=== PATIENT | female | born 1965 | race Caucasian/White ===

== ENCOUNTER 2016-06-12 12:48 | Emergency (ER) | payer SELFPAY ==
[~2016-06-12] VITALS: Ht 180.3 cm; Wt 104.0 kg
[~2016-06-12 12:48] MED LIST: ANTIVERT25 MG PO; AUGMENTIN875 MG PO; B COMPLEX #11 EACH PO; CIPRO500 MG PO; FIORICET,ESG1 TABLET PO; FLAGYL500 MG PO; HYCODAN SYRUP480 ML PO; HYDROCODON-ACE1 EAC7 PO; MOTRIN600 MG PO; MUCINEX DM ER1 EACH PO; PERCOCET 5/31 TABLET PO; PREDNISONE50 MG PO; PROVENTIL,2.5 MG/3 M IH; ROBITUSSIN AC,T10 ML PO; SKELAXIN800 MG PO; ULTRAM50 MG PO; VENTOLIN HFA18 GM IH; ZITHROMAX Z-PA250 MG PO; amberen
[2016-06-12 13:49] LABS: HEMATOCRIT 43.8 % (36.0-46.0); MCH 30.4 PG (29.0-34.0); MCHC 33.3 G/DL (30.0-36.0); MCV 91.1 FL (83-99); MEAN PLAT.VOLUME 9.9 uM^3 (9.5-12.4); PLATELET COUNT 244 K/uL (156-360); RBC DIS.WIDTH-CV 12.3 % (11.8-14.6); RED BLOOD COUNT 4.81 M/uL (3.80-5.20); WHITE BLOOD COUNT 9.8 K/uL (4.1-10.2)
[2016-06-12 14:01] LABS: CHLORIDE 102 mEq/L (99-109); POTASSIUM 4.4 mEq/L (3.7-5.4); SODIUM 139 mEq/L (136-147)
[2016-06-12 14:03] LABS: GLUCOSE 120 mg/dL (70-99)
[2016-06-12 14:04] LABS: ANION GAP 11 MEQ/L (2-14)
[2016-06-12 14:05] LABS: TOTAL BILIRUBIN 0.6 mg/dL (0.0-1.0)
[2016-06-12 14:06] LABS: ALKALINE PHOSPHATASE 62 IU/L (3-129)
[2016-06-12 14:07] LABS: GFR ESTIMATE (CALCULATED) > 59 mL/min/
[2016-06-12 14:08] LABS: UREA NITROGEN (BUN) 17 mg/dL (9-23)
[2016-06-12 14:17] LABS: QUANTITATIVE HCG < 4.0 MIU/ML
[2016-06-12] MEDS ORDERED: LO-DOSE ASPIRIN81 M2 PO (14:58)
[2016-06-12] MEDS ORDERED: MECLIZINE HCL25 MG PO (14:59)
[2016-06-12 16:09] LABS: BILIRUBIN NEGATIVE; BLOOD NEGATIVE; COLOR YELLOW ((YELLOW)); GLUCOSE (STRIP) NEGATIVE; KETONES NEGATIVE; LEUKOCYTES NEGATIVE; NITRITE NEGATIVE; PROTEIN (STRIP) NEGATIVE; SPECIFIC GRAVITY 1.013 (1.000-1.030); UROBILINOGEN 0.2 MG/DL (0.2-1.0)
[2016-06-12 16:25] LABS: ADD MIUA? NO; UCUL ADDED? NO
[2016-06-12] MEDS ORDERED: CIPRO500 MG PO (16:41)
[2016-06-12] MEDS ORDERED: PERCOCET 5/31 TABLET PO (16:41)
[2016-06-12] MEDS ORDERED: FLAGYL500 MG PO (16:41)
[2016-06-12 17:00] VITALS: BP 143/75
== END 2016-06-12 16:57 | disposition home or self-care (01) ==
LOC: EME 12:48
DX: K57.32 Diverticulitis of large intestine without perforation or abscess without bleeding (principal); R42 Dizziness and giddiness; Z90.710 Acquired absence of both cervix and uterus; Z79.82 Long term (current) use of aspirin
CPT/HCPCS: 74176; 80053; 81003; 84702; 85027; 99281; 99285; J2270; J2405

== ENCOUNTER 2016-06-23 20:06 | Inpatient (IN) | payer OTHER ==
[~2016-06-23] VITALS: Ht 180.3 cm; Wt 116.6 kg
[~2016-06-23 20:06] MED LIST changes: +LO-DOSE ASPIRIN81 M2 PO; +MECLIZINE HCL25 MG PO
[2016-06-23 21:02] LABS: HEMATOCRIT 41.9 % (36.0-46.0); MCH 30.3 PG (29.0-34.0); MCHC 33.2 G/DL (30.0-36.0); MCV 91.5 FL (83-99); MEAN PLAT.VOLUME 9.9 uM^3 (9.5-12.4); PLATELET COUNT 245 K/uL (156-360); RBC DIS.WIDTH-CV 12.3 % (11.8-14.6); RBC DIS.WIDTH-SD 41.3 % (39-53); RED BLOOD COUNT 4.58 M/uL (3.80-5.20); WHITE BLOOD COUNT 7.6 K/uL (4.1-10.2)
[2016-06-23 21:44] LABS: CHLORIDE 100 mEq/L (99-109); POTASSIUM 4.3 mEq/L (3.7-5.4); SODIUM 138 mEq/L (136-147)
[2016-06-23 21:46] LABS: GLUCOSE 129 mg/dL (70-99)
[2016-06-23 21:47] LABS: ANION GAP 11 MEQ/L (2-14)
[2016-06-23 21:48] LABS: TOTAL BILIRUBIN 0.4 mg/dL (0.0-1.0)
[2016-06-23 21:49] LABS: ALKALINE PHOSPHATASE 58 IU/L (3-129)
[2016-06-23 21:50] LABS: GFR ESTIMATE (CALCULATED) > 59 mL/min/
[2016-06-23 21:51] LABS: UREA NITROGEN (BUN) 16 mg/dL (9-23)
[2016-06-23 21:53] LABS: LIPASE 33 U/L (1.0-51.0)
[2016-06-23 22:02] LABS: QUANTITATIVE HCG < 4.0 MIU/ML
[2016-06-24 00:42] LABS: ADD MIUA? YES; BILIRUBIN NEGATIVE; BLOOD NEGATIVE; COLOR YELLOW ((YELLOW)); GLUCOSE (STRIP) NEGATIVE; KETONES NEGATIVE; LEUKOCYTES TRACE; NITRITE NEGATIVE; PROTEIN (STRIP) NEGATIVE; SPECIFIC GRAVITY 1.042 (1.000-1.030); UROBILINOGEN 0.2 MG/DL (0.2-1.0)
[2016-06-24 00:44] LABS: BACTERIA NONE SEEN /HPF; EPITHELIAL CELLS RARE /HPF; MUCUS TRACE /LPF; RED BLOOD CELLS 0-5 /HPF (0-5); UCUL ADDED? NO; WHITE BLOOD CELLS 0-5 /HPF (0-5)
[2016-06-24] MEDS ORDERED: IRBESARTAN75 MG PO (01:20)
[2016-06-24] MEDS ORDERED: BAL B-1001 EACH PO (01:21)
[2016-06-24] MEDS ORDERED: PROBIOTIC1 EAC1 PO (01:22)
[2016-06-24] MEDS ORDERED: CALCIUM-MAG-ZI1 EACH PO (01:22)
[2016-06-24] MEDS ORDERED: METRONIDAZOLE500 MG PO (01:23)
[2016-06-24] MEDS ORDERED: PERCOCET 5/31 TABLET PO (01:24)
[2016-06-24] MEDS ORDERED: CIPRO500 MG PO (01:24)
[2016-06-24] MEDS ORDERED: ZOFRAN4 MG PO (01:24)
[2016-06-24 03:00] VITALS: BP 116/62
[2016-06-24 08:10] VITALS: BP 124/58
[2016-06-24 10:50] VITALS: BP 119/58
[2016-06-24 15:55] VITALS: BP 137/65
[2016-06-24 20:55] VITALS: BP 138/67
[2016-06-24 23:35] VITALS: BP 118/67
[2016-06-25 04:21] VITALS: BP 117/62
[2016-06-25 07:30] VITALS: BP 122/58
[2016-06-25] MEDS ORDERED: NORCO 5/3251 TABLET PO (08:57)
[2016-06-25] MEDS ORDERED: IBUPROFEN600 MG PO (08:57)
[2016-06-25] MEDS ORDERED: ZOFRAN ODT4 MG PO (08:58)
== END 2016-06-25 11:35 | disposition home or self-care (01) | DRG 392 ==
LOC: EME 20:06 → EDOF 06-24 01:17 → 2EASTP 06-24 02:22
DX: K59.00 Constipation, unspecified (principal); K57.90 Diverticulosis of intestine, part unspecified, without perforation or abscess without bleeding; M79.7 Fibromyalgia; E66.9 Obesity, unspecified; Z88.1 Allergy status to other antibiotic agents; Z79.82 Long term (current) use of aspirin; Z68.35 Body mass index [BMI] 35.0-35.9, adult
CPT/HCPCS: 74177; 76705; 80053; 81003; 83690; 84702; 85027; 99281; 99285; J0744; J1885; J2270; J2405; J7030; S0030

== ENCOUNTER 2016-08-05 07:04 | Inpatient (IN) | payer OTHER ==
[~2016-08-05] VITALS: Ht 180.3 cm; Wt 111.0 kg
[~2016-08-05 07:04] MED LIST changes: +BAL B-1001 EACH PO; +CALCIUM-MAG-ZI1 EACH PO; +GLIMEPIRIDE1 MG PO; +IBUPROFEN600 MG PO; +IRBESARTAN75 MG PO; +METRONIDAZOLE500 MG PO; +NORCO 5/3251 TABLET PO; +PROBIOTIC1 EAC1 PO; +ZOFRAN ODT4 MG PO; +ZOFRAN4 MG PO
[2016-08-05 07:33] VITALS: BP 179/84
[2016-08-05 07:53] LABS: POINT-OF-CARE METER ID UU14174212
[2016-08-05 14:22] LABS: POINT-OF-CARE METER ID UU13113675; POINT-OF-CARE USER ID ADMSLT55
[2016-08-05 16:09] VITALS: BP 139/73
[2016-08-05 17:40] VITALS: BP 139/73
[2016-08-05 19:40] VITALS: BP 135/69
[2016-08-05 23:49] VITALS: BP 113/59
[2016-08-06 03:45] VITALS: BP 113/56
[2016-08-06 03:55] VITALS: BP 114/57
[2016-08-06 08:25] VITALS: BP 110/55
[2016-08-06 09:17] LABS: EOSINOPHIL (%) 0 % (0-5); HEMATOCRIT 34.7 % (36.0-46.0); IMMATURE GRANULOCYTE (%) 0.6 % (0.0-0.7); IMMATURE GRANULOCYTE COUNT 0.1 K/uL; INSTRUMENT ABS NEUTROPHIL CT 8.3 K/uL; LYMPHOCYTE COUNT 1.5 K/uL (1.0-2.8); MCH 30.5 PG (29.0-34.0); MCHC 32.9 G/DL (30.0-36.0); MCV 92.8 FL (83-99); MEAN PLAT.VOLUME 9.9 uM^3 (9.5-12.4); MONOCYTE (%) 9.8 % (3-12); MONOCYTE COUNT 1.1 K/uL (0-0.8); NEUTROPHIL (%) 75.9 % (45-76); NEUTROPHIL COUNT 8.3 K/uL (1.8-6.4); PLATELET COUNT 219 K/uL (156-360); RBC DIS.WIDTH-CV 12.2 % (11.8-14.6); RBC DIS.WIDTH-SD 41.6 % (39-53); RED BLOOD COUNT 3.74 M/uL (3.80-5.20); WHITE BLOOD COUNT 10.9 K/uL (4.1-10.2)
[2016-08-06 09:26] LABS: CHLORIDE 104 mEq/L (99-109); POTASSIUM 4.4 mEq/L (3.7-5.4); SODIUM 138 mEq/L (136-147)
[2016-08-06 09:27] LABS: MAGNESIUM 2.2 mg/dL (1.3-2.7)
[2016-08-06 09:29] LABS: GLUCOSE 134 mg/dL (70-99)
[2016-08-06 09:30] LABS: ANION GAP 8 MEQ/L (2-14)
[2016-08-06 09:31] LABS: TOTAL BILIRUBIN 0.6 mg/dL (0.0-1.0)
[2016-08-06 09:32] LABS: ALKALINE PHOSPHATASE 53 IU/L (3-129)
[2016-08-06 09:33] LABS: GFR ESTIMATE (CALCULATED) > 59 mL/min/
[2016-08-06 09:34] LABS: UREA NITROGEN (BUN) 12 mg/dL (9-23)
[2016-08-06 11:20] VITALS: BP 113/59
[2016-08-06 19:33] VITALS: BP 123/57
[2016-08-06 23:19] VITALS: BP 120/56
[2016-08-07 03:31] VITALS: BP 148/65
[2016-08-07 08:00] VITALS: BP 121/58
[2016-08-07 09:56] LABS: EOSINOPHIL COUNT 0.1 K/uL (0-0.3); HEMATOCRIT 33.9 % (36.0-46.0); IMMATURE GRANULOCYTE (%) 0.6 % (0.0-0.7); IMMATURE GRANULOCYTE COUNT 0.1 K/uL; INSTRUMENT ABS NEUTROPHIL CT 5.2 K/uL; LYMPHOCYTE COUNT 2.5 K/uL (1.0-2.8); MCH 30.4 PG (29.0-34.0); MCHC 32.2 G/DL (30.0-36.0); MCV 94.4 FL (83-99); MEAN PLAT.VOLUME 9.7 uM^3 (9.5-12.4); MONOCYTE COUNT 0.9 K/uL (0-0.8); NEUTROPHIL (%) 59.5 % (45-76); NEUTROPHIL COUNT 5.2 K/uL (1.8-6.4); PLATELET COUNT 178 K/uL (156-360); RBC DIS.WIDTH-CV 12.3 % (11.8-14.6); RBC DIS.WIDTH-SD 42.7 % (39-53); RED BLOOD COUNT 3.59 M/uL (3.80-5.20); WHITE BLOOD COUNT 8.8 K/uL (4.1-10.2)
[2016-08-07 10:24] LABS: CHLORIDE 104 mEq/L (99-109); POTASSIUM 3.7 mEq/L (3.7-5.4); SODIUM 141 mEq/L (136-147)
[2016-08-07 10:25] LABS: MAGNESIUM 2.1 mg/dL (1.3-2.7)
[2016-08-07 10:27] LABS: GLUCOSE 108 mg/dL (70-99)
[2016-08-07 10:28] LABS: ANION GAP 11 MEQ/L (2-14); TOTAL BILIRUBIN 0.5 mg/dL (0.0-1.0)
[2016-08-07 10:30] LABS: ALKALINE PHOSPHATASE 50 IU/L (3-129); GFR ESTIMATE (CALCULATED) > 59 mL/min/
[2016-08-07 10:31] LABS: UREA NITROGEN (BUN) 12 mg/dL (9-23)
[2016-08-07 11:58] VITALS: BP 135/60
[2016-08-07 16:33] VITALS: BP 127/63
[2016-08-07 22:26] VITALS: BP 112/57
[2016-08-08 00:07] VITALS: BP 129/58
[2016-08-08 04:19] VITALS: BP 133/71
[2016-08-08 08:00] VITALS: BP 136/61
[2016-08-08] MEDS ORDERED: PERCOCET 5/31 TABLET PO (08:44)
[2016-08-08] MEDS ORDERED: COLACE100 MG PO (08:44)
== END 2016-08-08 19:00 | disposition home or self-care (01) | DRG 331 ==
LOC: 2EAST 07:04 → 2SOUTH 07:04 → SDC 09:48 → 2SOUTH 09:49 → EDSTATUS 09:49 → 2SOUTH 09:55 → 2EAST 15:27
PROVIDERS: Surgery
DX: K57.32 Diverticulitis of large intestine without perforation or abscess without bleeding (principal); E11.9 Type 2 diabetes mellitus without complications; I10 Essential (primary) hypertension; M79.7 Fibromyalgia; K76.0 Fatty (change of) liver, not elsewhere classified; E78.5 Hyperlipidemia, unspecified; J45.909 Unspecified asthma, uncomplicated; E66.9 Obesity, unspecified; Z68.36 Body mass index [BMI] 36.0-36.9, adult; Z79.84 Long term (current) use of oral hypoglycemic drugs; Z90.710 Acquired absence of both cervix and uterus; Z88.1 Allergy status to other antibiotic agents; Z80.0 Family history of malignant neoplasm of digestive organs
CPT/HCPCS: 80053; 82948; 83735; 84100; 85025; 88305; 88307; 88313; 94799; J0131; J1100; J1170; J1650; J2250; J2405; J2710; J2765; J3010; J7120; S0030

== ENCOUNTER 2016-12-22 17:43 | Inpatient (IN) | payer OTHER ==
[~2016-12-22] VITALS: Ht 180.3 cm; Wt 118.9 kg
[~2016-12-22 17:43] MED LIST changes: +COLACE100 MG PO
[2016-12-22 18:47] LABS: HEMATOCRIT 42.5 % (36.0-46.0); MCH 29.5 PG (29.0-34.0); MCHC 33.2 G/DL (30.0-36.0); MCV 88.9 FL (83-99); PLATELET COUNT 269 K/uL (156-360); RBC DIS.WIDTH-CV 12.3 % (11.8-14.6); RBC DIS.WIDTH-SD 40.2 % (39-53); RED BLOOD COUNT 4.78 M/uL (3.80-5.20); WHITE BLOOD COUNT 11.7 K/uL (4.1-10.2)
[2016-12-22 18:55] LABS: D-DIMER ELISA < 150.00 ng/mLDDU (<230)
[2016-12-22 18:59] LABS: CHLORIDE 104 mEq/L (99-109); POTASSIUM 3.9 mEq/L (3.7-5.4); SODIUM 139 mEq/L (136-147)
[2016-12-22 19:01] LABS: GLUCOSE 84 mg/dL (70-99)
[2016-12-22 19:02] LABS: ANION GAP 9 MEQ/L (2-14)
[2016-12-22 19:05] LABS: GFR ESTIMATE (CALCULATED) > 59 mL/min/
[2016-12-22 19:06] LABS: UREA NITROGEN (BUN) 13 mg/dL (9-23)
[2016-12-22 19:09] LABS: TROP-I INTERPRETATION NEGATIVE; TROPONIN-I < 0.01 ng/mL (0.0-0.30)
[2016-12-22] MEDS ORDERED: PREDNISONE20 MG PO (21:05)
[2016-12-22] MEDS ORDERED: AMOXICILLIN500 M1 PO (21:05)
[2016-12-22] MEDS ORDERED: VENTOLIN HFA18 GM IH (21:06)
[2016-12-22] MEDS ORDERED: VIRTUSSIN AC L118 ML PO (21:09)
[2016-12-22 22:51] LABS: TOTAL BILIRUBIN 0.5 mg/dL (0.0-1.0)
[2016-12-22 22:52] LABS: ALKALINE PHOSPHATASE 50 IU/L (3-129)
[2016-12-22 22:54] LABS: DIRECT BILIRUBIN 0.2 mg/dL (0.0-0.3)
[2016-12-22 23:54] VITALS: BP 141/84
[2016-12-23 01:34] LABS: INFLUENZA A VIRAL ANTIGEN NEGATIVE; INFLUENZA B VIRAL ANTIGEN NEGATIVE
[2016-12-23 03:37] VITALS: BP 135/68
[2016-12-23 06:14] LABS: MCH 29.5 PG (29.0-34.0); MCHC 32.7 G/DL (30.0-36.0); MCV 90.3 FL (83-99); MEAN PLAT.VOLUME 10.1 uM^3 (9.5-12.4); PLATELET COUNT 245 K/uL (156-360); RBC DIS.WIDTH-CV 12.4 % (11.8-14.6); RED BLOOD COUNT 4.54 M/uL (3.80-5.20); WHITE BLOOD COUNT 11.9 K/uL (4.1-10.2)
[2016-12-23 06:29] LABS: ANION GAP 11 MEQ/L (2-14); CHLORIDE 104 MEQ/L (99-109); GFR ESTIMATE (CALCULATED) > 59 mL/min/; SAMPLE HEMOLYSIS CHECK 0; SAMPLE ICTERIC CHECK 0; SAMPLE LIPEMIA CHECK 0; SODIUM 138 MEQ/L (136-147); UREA NITROGEN (BUN) 19 mg/dL (9-23)
[2016-12-23 06:30] LABS: GLUCOSE 253 mg/dL (70-99); POTASSIUM 4.8 MEQ/L (3.7-5.4)
[2016-12-23 06:43] LABS: ADD MIUA? YES; BILIRUBIN NEGATIVE; BLOOD NEGATIVE; COLOR YELLOW ((YELLOW)); GLUCOSE (STRIP) >=500; KETONES NEGATIVE; LEUKOCYTES NEGATIVE; NITRITE NEGATIVE; PROTEIN (STRIP) NEGATIVE; UROBILINOGEN 0.2 MG/DL (0.2-1.0)
[2016-12-23 06:50] LABS: BACTERIA RARE /HPF; EPITHELIAL CELLS 2+ /HPF; MUCUS TRACE /LPF; RED BLOOD CELLS 0-5 /HPF (0-5); WHITE BLOOD CELLS 0-5 /HPF (0-5)
[2016-12-23 07:13] VITALS: BP 138/82
[2016-12-23 11:21] VITALS: BP 170/84
[2016-12-23 12:33] LABS: POINT-OF-CARE METER ID UU13113717
[2016-12-23 15:15] VITALS: BP 147/87
[2016-12-23 16:53] LABS: POINT-OF-CARE METER ID UU14188625
[2016-12-23 19:20] VITALS: BP 144/82
[2016-12-23 23:40] VITALS: BP 139/66
[2016-12-24 03:55] VITALS: BP 120/59
[2016-12-24 07:02] LABS: HEMATOCRIT 39.1 % (36.0-46.0); MCH 29.8 PG (29.0-34.0); MCHC 32.7 G/DL (30.0-36.0); MCV 91.1 FL (83-99); MEAN PLAT.VOLUME 10.1 uM^3 (9.5-12.4); PLATELET COUNT 247 K/uL (156-360); RBC DIS.WIDTH-CV 12.7 % (11.8-14.6); RBC DIS.WIDTH-SD 41.7 % (39-53); RED BLOOD COUNT 4.29 M/uL (3.80-5.20); WHITE BLOOD COUNT 17.5 K/uL (4.1-10.2)
[2016-12-24 07:14] VITALS: BP 141/66
[2016-12-24 09:09] LABS: TROP-I INTERPRETATION NEGATIVE; TROPONIN-I < 0.01 ng/mL (0.0-0.30)
[2016-12-24 11:14] LABS: POINT-OF-CARE METER ID UU14188625
[2016-12-24 11:32] VITALS: BP 140/67
[2016-12-24 15:10] VITALS: BP 151/61
[2016-12-24 16:27] LABS: POINT-OF-CARE METER ID UU14188625
[2016-12-24 19:33] VITALS: BP 150/65
[2016-12-24 21:11] LABS: POINT-OF-CARE METER ID UU14188625
[2016-12-24 23:16] VITALS: BP 141/67
[2016-12-25 03:40] VITALS: BP 136/69
[2016-12-25 07:30] LABS: HEMATOCRIT 38.7 % (36.0-46.0); MCH 30.5 PG (29.0-34.0); MCHC 33.1 G/DL (30.0-36.0); MCV 92.4 FL (83-99); MEAN PLAT.VOLUME 10.5 uM^3 (9.5-12.4); PLATELET COUNT 225 K/uL (156-360); RBC DIS.WIDTH-SD 43.6 % (39-53); RED BLOOD COUNT 4.19 M/uL (3.80-5.20); WHITE BLOOD COUNT 15.8 K/uL (4.1-10.2)
[2016-12-25 07:59] VITALS: BP 139/71
[2016-12-25 08:05] LABS: ANION GAP 11 MEQ/L (2-14); CHLORIDE 104 MEQ/L (99-109); GFR ESTIMATE (CALCULATED) > 59 mL/min/; GLUCOSE 148 mg/dL (70-99); POTASSIUM 4.6 MEQ/L (3.7-5.4); SAMPLE HEMOLYSIS CHECK 0; SAMPLE ICTERIC CHECK 0; SAMPLE LIPEMIA CHECK 0; SODIUM 140 MEQ/L (136-147); UREA NITROGEN (BUN) 26 mg/dL (9-23)
[2016-12-25] MEDS ORDERED: DOXYCYCLINE HY100 M3 PO (08:58)
[2016-12-25] MEDS ORDERED: PREDNISONE20 MG PO (08:58)
[2016-12-25] MEDS ORDERED: FLEXERIL10 MG PO (10:58)
[2016-12-25 12:11] LABS: POINT-OF-CARE METER ID UU14188625
[2016-12-25 12:15] VITALS: BP 155/87
== END 2016-12-25 15:47 | disposition home or self-care (01) | DRG 202 ==
LOC: EME 17:43 → 5SOUTH 22:12 → EDOF 22:12 → ENRESERV 22:14 → 5SOUTH 23:32
PROVIDERS: Hospitalist; Nurse Practitioner Family; Physician Assistant; Physician Assistant Medical
DX: J20.9 Acute bronchitis, unspecified (principal); E87.2 Acidosis; J45.909 Unspecified asthma, uncomplicated; R73.03 Prediabetes; M79.7 Fibromyalgia; E78.5 Hyperlipidemia, unspecified; E66.01 Morbid (severe) obesity due to excess calories; J98.11 Atelectasis; E11.9 Type 2 diabetes mellitus without complications; Z68.36 Body mass index [BMI] 36.0-36.9, adult
CPT/HCPCS: 71020; 71250; 80048; 80076; 81003; 82948; 83605; 84484; 85027; 85379; 87040; 87502; 90686; 93005; 94640; 94640 76; 99202; 99281; 99285; J0696; J1650; J1815; J1885; J2405; J2930; J7030; J7050; J7512

== ENCOUNTER 2017-09-01 14:44 | Emergency (ER) | payer OTHER ==
[~2017-09-01] VITALS: Ht 180.3 cm; Wt 116.8 kg
[~2017-09-01 14:44] MED LIST changes: +AMOXICILLIN500 M1 PO; +DOXYCYCLINE HY100 M3 PO; +FLEXERIL10 MG PO; +PREDNISONE20 MG PO; +VIRTUSSIN AC L118 ML PO
[2017-09-01 15:23] LABS: BASOPHIL (%) 0.3 % (0-1); EOSINOPHIL (%) 1.6 % (0-5); EOSINOPHIL COUNT 0.2 K/uL (0-0.3); HEMATOCRIT 40.4 % (36.0-46.0); HEMOGLOBIN 13.7 G/DL (11.9-15.5); IMMATURE GRANULOCYTE (%) 0.4 % (0.0-0.7); LYMPHOCYTE (%) 30.7 % (15-42); LYMPHOCYTE COUNT 2.8 K/uL (1.0-2.8); MCH 30.7 PG (29.0-34.0); MCHC 33.9 G/DL (30.0-36.0); MCV 90.6 FL (83-99); MONOCYTE (%) 8.7 % (3-12); MONOCYTE COUNT 0.8 K/uL (0-0.8); NEUTROPHIL (%) 58.3 % (45-76); NEUTROPHIL COUNT 5.4 K/uL (1.8-6.4); PLATELET COUNT 206 K/uL (156-360); RBC DIS.WIDTH-CV 12.1 % (11.8-14.6); RBC DIS.WIDTH-SD 40.3 % (39-53); RED BLOOD COUNT 4.46 M/uL (3.80-5.20); WHITE BLOOD COUNT 9.2 K/uL (4.1-10.2)
[2017-09-01 15:41] LABS: CHLORIDE 103 mEq/L (99-109); POTASSIUM 4.4 mEq/L (3.7-5.4); SODIUM 141 mEq/L (136-147)
[2017-09-01 15:43] LABS: GLUCOSE 138 mg/dL (70-99)
[2017-09-01 15:47] LABS: CREATININE 0.8 mg/dL (0.6-1.3); GFR ESTIMATE (CALCULATED) > 59 mL/min/; UREA NITROGEN (BUN) 18 mg/dL (9-23)
[2017-09-01 15:51] LABS: APPEARANCE CLEAR ((CLEAR)); BILIRUBIN NEGATIVE; BLOOD NEGATIVE; COLOR YELLOW ((YELLOW)); GLUCOSE (STRIP) NEGATIVE; KETONES NEGATIVE; LEUKOCYTES NEGATIVE; NITRITE NEGATIVE; PROTEIN (STRIP) NEGATIVE; SPECIFIC GRAVITY 1.015 (1.000-1.030); UCUL ADDED? NO; UROBILINOGEN 0.2 MG/DL (0.2-1.0)
[2017-09-01] MEDS ORDERED: ZOFRAN ODT4 MG PO (17:25)
[2017-09-01 18:25] VITALS: BP 132/81
== END 2017-09-01 18:25 | disposition home or self-care (01) ==
LOC: EME 14:44
PROVIDERS: Emergency Medicine
DX: B34.9 Viral infection, unspecified (principal); I10 Essential (primary) hypertension; Z90.710 Acquired absence of both cervix and uterus; M79.7 Fibromyalgia; Z88.1 Allergy status to other antibiotic agents
CPT/HCPCS: 74176; 80048; 81003; 83605; 85025; 93005; 99281; 99285; J0780; J1200; J7030